=== PATIENT | female | born 1955 ===

== ENCOUNTER 2020-03-28 06:23 | Outpatient (CLI) | payer OTHER | END 2020-03-28 15:00 | disposition home or self-care (01) | LOC: LAB 06:23 | PROVIDERS: ATTEND Orthopaedic Surgery | DX: E21.2 Other hyperparathyroidism (principal); M85.88 Other specified disorders of bone density and structure, other site; E55.9 Vitamin D deficiency, unspecified; E88.89 Other specified metabolic disorders; M81.8 Other osteoporosis without current pathological fracture; E56.1 Deficiency of vitamin K ==

== ENCOUNTER 2020-05-01 12:51 | Outpatient (CLI) | payer OTHER | END 2020-05-01 12:53 | disposition home or self-care (01) | LOC: RAD 12:51 | PROVIDERS: ATTEND Orthopaedic Surgery | DX: M25.561 Pain in right knee (principal); M25.562 Pain in left knee ==